=== PATIENT | male | born 1965 | race African-American/Black ===

== ENCOUNTER 2019-04-10 16:32 | Emergency (ER) | payer OTHER ==
[2019-04-10 16:41] VITALS: BP 133/84; PULSE 100; TEMP 98.2; BMI 36.6
--- NOTE | 2019-04-10 16:50 | PDOC ---
History of Present Illness - General Chief Complaint: Pain, Acute Stated Complaint: RT.LEG PAIN Time Seen by Provider: 04/10/19 16:41 History Source: Patient - History of Present Illness Occurred: reports: other Lower Extremity Pain Location: right: other (R thigh/leg) Past History - Past Medical History Allergies/Adverse Reactions: Allergies Allergy/AdvReac Type Severity Reaction Status Date / Time No Known Allergies Allergy Verified 03/10/18 16:27 Home Medications: Ambulatory Orders metFORMIN HCL [Metformin HCl ER] 500 mg PO ASDIR 03/10/18 COPD: No Diabetes: Yes - Immunization History Immunization Up to Date: Yes - Psycho Social/Smoking Cessation Hx Smoking History: Never smoked Have you smoked in the past 12 months: No Information on smoking cessation initiated: No Hx Alcohol Use: No Drug/Substance Use Hx: No Review of Systems - Review of Systems Musculoskeletal: Yes: Muscle Pain *Physical Exam - Vital Signs Last Vital Signs Temp Pulse Resp BP Pulse Ox 98.2 F 100 H 16 133/84 97 04/10/19 16:39 04/10/19 16:39 04/10/19 16:39 04/10/19 16:39 04/10/19 16:39 - Physical Exam General Appearance: Yes: Appropriately Dressed. No: Apparent Distress HEENT: positive: Normal Voice Neck: positive: Supple Respiratory/Chest: negative: Respiratory Distress Extremity: positive: Normal Inspection, Normal Range of Motion. negative: Tender, Swelling, Erythema Integumentary: positive: Dry, Warm Neurologic: positive: Fully Oriented, Alert, Normal Mood/Affect Medical Decision Making - Medical Decision Making 04/10/19 16:44 53 yo M, no sig hx, states for the past 2 weeks he had pain to R thigh/leg that started after lifting >100 pounds equipment at work. Taking Motrin at home with some relief. Able to bear weight with no difficulty. States his is here as a patient and so he decided to get checked and as well see exam M/l RLE strain Exam wnl Dc to continue OTC pain meds and f/u with PMD as needed Discharge - Discharge Information Problems reviewed: Yes Clinical Impression/Diagnosis: Leg pain Qualifiers: Laterality: right Qualified Code(s): M79.604 - Pain in right leg Disposition: HOME - Follow up/Referral - Patient Discharge Instructions Patient Printed Discharge Instructions: Muscle Strain Additional Instructions: Continue taking Motrin or Tylenol for the pain and follow-up with your PMD if pain persists - Post Discharge Activity
== END 2019-04-10 17:25 | disposition home or self-care (01) ==
LOC: JERFT 16:32
DX: M79.604 Pain in right leg (principal); M79.651 Pain in right thigh; S76.811A Strain of other specified muscles, fascia and tendons at thigh level, right thigh, initial encounter; X50.9XXA Other and unspecified overexertion or strenuous movements or postures, initial encounter; Y93.89 Activity, other specified; Y92.89 Other specified places as the place of occurrence of the external cause; Y99.0 Civilian activity done for income or pay
CPT/HCPCS: 99281-25

== ENCOUNTER 2021-04-13 11:54 | Emergency (ER) | payer OTHER ==
[2021-04-13 12:07] VITALS: TEMP 97.9; BMI 43.0
[2021-04-13] MEDS ORDERED: ACETAMINOPHEN 1000 MG/100 ML BAG IVPB ONE (12:53)
[2021-04-13] MEDS ORDERED: SODIUM CHLORIDE 0.9% 500 ML INFUS.BAG IV ONE (13:02)
[2021-04-13] MEDS ORDERED: ACETAMINOPHEN INJECTION 100 ML IVPB ONE (13:10)
[2021-04-13 13:53] LABS: BASO % 0.8 % (0-2.0); EOS % 2.3 % (0-4.5); HEMATOCRIT 40.4 % (35.4-49); HEMOGLOBIN 13.6 GM/dL (11.7-16.9); LYMPH % 37.9 % (8-40); MCH 26.6 pg (25.7-33.7); MCHC 33.7 g/dl (32.0-35.9); MEAN CELL VOLUME 78.9 fl (80-96); MEAN PLT VOLUME 9.3 fl (7.5-11.1); MONO % 10.5 % (3.8-10.2); NEUT % 48.5 % (42.8-82.8); PLATELET COUNT 220 10^3/uL (134-434); RBC 5.12 M/mm3 (4.00-5.60); RDW 14.1 % (11.9-15.9); WHITE BLOOD COUNT 5.3 K/mm3 (4.0-10.0)
[2021-04-13 14:21] LABS: INR 1.03 (0.83-1.09); PROTHROMBIN TIME (PATIENT) 11.8 SEC (9.7-13.0)
[2021-04-13 14:24] LABS: ACTIVATED PTT 26.3 SECONDS (25.2-36.5)
[2021-04-13 14:43] LABS: CHLORIDE 104 mmol/L (98-107); SODIUM 137 mmol/L (136-145)
[2021-04-13 14:45] LABS: CALCIUM 9.1 mg/dL (8.5-10.1)
[2021-04-13 14:46] LABS: ALBUMIN 3.7 g/dl (3.4-5.0); ANION GAP 6 MMOL/L (8-16); BLOOD UREA NITROGEN 16.1 mg/dL (7-18); CO2 26 mmol/L (21-32); GLUCOSE,RANDOM 227 mg/dL (74-106)
[2021-04-13 14:49] LABS: SGOT/AST 28 U/L (15-37); SGPT/ALT 43 U/L (13-61)
[2021-04-13 14:50] LABS: BILIRUBIN,TOTAL 0.5 mg/dL (0.2-1)
[2021-04-13 14:52] LABS: ALK PHOS 103 U/L (45-117)
[2021-04-13 15:12] VITALS: BP 116/80; PULSE 80
== END 2021-04-13 15:12 | disposition home or self-care (01) ==
LOC: JER 11:54
PROC: 3E0333Z Introduction of Anti-inflammatory into Peripheral Vein, Percutaneous Approach (ICD-10-PCS; principal; 2021-04-13)
DX: R07.9 Chest pain, unspecified (principal); W00.0XXA Fall on same level due to ice and snow, initial encounter
CPT/HCPCS: 36415; 71046-TC-FY; 80053; 82550; 82553; 84484; 85025; 85610; 85730; 93005; 93010; 99285-25; J0131